=== PATIENT | female | born 1955 | race Caucasian/White ===

== ENCOUNTER 2020-09-27 07:38 | Day surgery (SDC) | payer MEDICARE, SELFPAY ==
[2020-09-20 16:11] VITALS: BMI 35.9
--- NOTE | 2020-09-26 13:25 | HO.ANESPROP2 ---
Documented by User: Monik Sheridan 09/26/20 13:26 HPI - Anesthesia Eval Consult details Narrative: 65yo F for Colonoscopy PMFSH Past Medical History Medical History No significant past medical history Surgical History Surgical History History of total right knee replacement (TKR) Hx of breast biopsy Hx of colonoscopy Hx of left knee surgery Social History Social History Smoking Status: Unknown if ever smoked Use of substances other than those prescribed or required for medical reasons: No Advance Directives: No Advance Directives Information Provided: No Advance Directives on File: No Meds Allergies Allergy/AdvReac Type Severity Reaction Status Date / Time codeine Allergy Unknown Verified 09/20/20 16:06 erythromycin base Allergy Unknown Verified 09/20/20 16:06 ethinyl estradiol Allergy Unknown Verified 09/20/20 16:06 [From Seasonale ()] levonorgestrel Allergy Unknown Verified 09/20/20 16:06 [From Seasonale ()] morphine Allergy Unknown Verified 09/20/20 16:06 Home Medications Medication Instructions Recorded Confirmed Type ascorbate calcium (vitamin C) 500 mg PO DAILY 09/20/20 09/20/20 History [Radha-C] cholecalciferol (vitamin D3) 50 mcg PO DAILY 09/20/20 09/20/20 History [Vitamin D3] gabapentin PO 09/20/20 History loratadine 10 mg PO DAILY 09/20/20 09/20/20 History naproxen 1 tab PO BID 09/20/20 09/20/20 History omega 8-vbc-utg-fish oil [Fish Oil] 1 cap PO DAILY 09/20/20 09/20/20 History amoxicillin 2 PO 09/27/20 History Exam Exam Date and Time: September 26, 2020 1325 Height,Weight and Vital Signs: Height 5 ft 3 in Weight 92.079 kg Assessment and Plan Assessment Anesthesia Assessment: Chart Reviewed Documented by User: Denisse Villarreal 09/27/20 09:14 PMFSH Past Medical History Medical History No significant past medical history Surgical History Surgical History History of total right knee replacement (TKR) Hx of breast biopsy Hx of colonoscopy Hx of left knee surgery Social History Social History Smoking Status: Unknown if ever smoked Use of substances other than those prescribed or required for medical reasons: No Advance Directives: No Advance Directives Information Provided: No Advance Directives on File: No Meds Allergies Allergy/AdvReac Type Severity Reaction Status Date / Time codeine Allergy Unknown Verified 09/20/20 16:06 erythromycin base Allergy Unknown Verified 09/20/20 16:06 ethinyl estradiol Allergy Unknown Verified 09/20/20 16:06 [From e ()] levonorgestrel Allergy Unknown Verified 09/20/20 16:06 [From e ()] morphine Allergy Unknown Verified 09/20/20 16:06 Home Medications Medication Instructions Recorded Confirmed Type ascorbate calcium (vitamin C) 500 mg PO DAILY 09/20/20 09/20/20 History [Radha-C] cholecalciferol (vitamin D3) 50 mcg PO DAILY 09/20/20 09/20/20 History [Vitamin D3] gabapentin PO 09/20/20 History loratadine 10 mg PO DAILY 09/20/20 09/20/20 History naproxen 1 tab PO BID 09/20/20 09/20/20 History omega 4-lsn-ljb-fish oil [Fish Oil] 1 cap PO DAILY 09/20/20 09/20/20 History amoxicillin 2 PO 09/27/20 History Exam Airway Mallampati Class: II TM Dist: >3cm Neck ROM: Full Heart: RRR Lungs: CTA Assessment and Plan Assessment Anesthesia Assessment: Anesthesia Plan Discussed and Chart Reviewed Final Anesthetic Review NPO: Yes ASA Class: II Final Preanesthetic Review: Meds/Allgs Chart Reviewed, Consent Obtained/Reviewed and Anes Risks/Benef Reviewed Patient Risk: Low Procedure Risk: Low Anesthetic Plan Anesthetic Plan: MAC: Disposition: Standard PACU
[2020-09-27] MEDS: Lactated Ringers 1,000 ML 100 ML IVCONT (08:19)
[2020-09-27 08:24] VITALS: BP 125/71; PULSE 94; RESP 16; TEMP 36.7; O2SAT 95
--- NOTE | 2020-09-27 09:11 | MHC.SHP ---
Pre-Procedural Eval Section B Chief Complaint: POLYPS,DYSPLASIA Details of Present Illness: see H&P and addendum, no changes Relevant Family History (Specify if Yes): No Relevant Social History: None Present Medications: see Short Stay Collaborative assessment Medical History: Significant History (see H&P no changes) History of Previous Operations: No relevant previous surgery Allergies: Allergies Allergy/AdvReac Type Severity Reaction Status Date / Time codeine Allergy Unknown Verified 09/20/20 16:06 erythromycin base Allergy Unknown Verified 09/20/20 16:06 ethinyl estradiol Allergy Unknown Verified 09/20/20 16:06 [From Seasonale ()] levonorgestrel Allergy Unknown Verified 09/20/20 16:06 [From Seasonale ()] morphine Allergy Unknown Verified 09/20/20 16:06 Review of Systems Sugical H&P ROS: Negative: Constitution, Cardiovascular, Respiratory, Neurological, Psychiatric, Hem-Onc, Allergic/Immunologic, Gastrointestinal, Genitourinary, Musculoskeletal, Integumentary, Endocrine and Eyes/Ears/Nose/Throat Exam Surgical H&P Exam: Normal: HEENT, Normal: Heart, Normal: Lungs, Normal: Extremities, Normal: Abdomen, Normal: Skin and Normal: Neurological Plan Diagnosis/Plan: Unchanged Patient has been examined and remains a candidate for the planned procedure
[2020-09-27 09:45] VITALS: BP 100/63; PULSE 82; RESP 16; TEMP 36.9; O2SAT 97
--- NOTE | 2020-09-27 09:51 | PM.OP ---
Brief Operative Note Date of procedure: 09/27/20 Pre-op diagnosis: polyp with low grade dysplasia Post-op diagnosis: same Procedure: colonoscopy Surgeon: Joshua Driver Anesthesia: MAC Estimated blood loss (mL): 5 Pathology: other (biopsies cecum, right colon, 65cm) Condition: stable Disposition: PACU
[2020-09-27 10:01] VITALS: BP 112/70; PULSE 67; RESP 13; TEMP 36.9; O2SAT 98
--- NOTE | 2020-09-27 10:15 | OP_ITS ---
SURGEON: Joshua Driver MD INDICATIONS: Personal history of colon polyps and low-grade dysplasia on prior biopsies. PREOPERATIVE DIAGNOSIS: POSTOPERATIVE DIAGNOSIS: PROCEDURE PERFORMED: Colonoscopy to the terminal ileum with biopsy. ESTIMATED BLOOD LOSS: COMPLICATIONS: ANESTHESIA: ASSISTANTS: SPECIMENS: MEDICATIONS: Monitored anesthesia care. DESCRIPTION OF PROCEDURE: History and physical performed. The risks and benefits of the procedure were explained to the patient, and informed consent was obtained. The patient was placed in left lateral decubitus position. A digital rectal exam was performed and was found to be normal. The Olympus pediatric video colonoscope was introduced into the rectum and advanced to the cecum without difficulty. The cecum was identified by transillumination, palpation, and identification of ileocecal valve. Examination was performed. The scope was removed. She tolerated the procedure well and was taken to recovery in stable condition. FINDINGS: The terminal ileum was normal. The visualized colonic mucosa was within normal limits without evidence of masses or ulcers. No polyps were identified. There was no evidence of colitis and no raised lesions or ulcerated areas. Random biopsies were obtained from the cecum, right colon and the vicinity of 65 cm where the prior polypectomy was performed, although the previous polypectomy site was not clearly identifiable. Mild sigmoid diverticulosis was noted. Retroflexed examination showed small internal hemorrhoids. IMPRESSION: Normal colonoscopy. RECOMMENDATIONS: Follow up the biopsy results. MD HAIM Vázquez/KALEB / [id number]
--- NOTE | 2020-09-27 10:55 | HO.POSTANES ---
Post Anesthesia Evaluation Post Anesthesia Evaluation Vital Signs: Vital Signs Temp Pulse Resp BP Pulse Ox 09/27/20 10:01 98.4 F 67 13 112/70 98 09/27/20 09:45 98.4 F 82 16 100/63 97 09/27/20 08:24 98.1 F 94 16 125/71 95 Anesthesia: Monitored Mental Status: Awake Pain Control: Satisfactory Nausea/Vomiting: None Hydration: Adequate Anesthesia-Related Issues: No Anes. Related Issues
== END 2020-09-27 23:59 | disposition home or self-care (01) ==
PROVIDERS: PCP Registered Nurse; Visit Provider Internal Medicine Gastroenterology
PROC: 0DJD8ZZ Inspection of Lower Intestinal Tract, Via Natural or Artificial Opening Endoscopic (ICD-10-PCS; CPT 45378; principal; 2020-09-27 08:50)
DX: Z12.11 Encounter for screening for malignant neoplasm of colon (principal); Z86.010 Personal history of colon polyps; K57.30 Diverticulosis of large intestine without perforation or abscess without bleeding; K64.8 Other hemorrhoids; J30.2 Other seasonal allergic rhinitis; Z79.899 Other long term (current) drug therapy; Z88.1 Allergy status to other antibiotic agents; Z88.8 Allergy status to other drugs, medicaments and biological substances
CPT/HCPCS: 45380; 88305